=== PATIENT | male | born 1970 | race Caucasian/White ===

== ENCOUNTER 2020-04-30 23:56 | Inpatient (IN) ==
[2020-05-01] MEDS ORDERED: Heparin - STEMI 5,000 UNITS/ML 1 ml VIAL IV ONE
[2020-05-01] MEDS ORDERED: nitroGLYCERIN DRIP 25,000 MCG/250 ML BTL ONE ×2 (00:09→00:27)
[2020-05-01] MEDS ORDERED: NS 0.9% 1000 ml BAG 1,000 ML IV ONE (00:10)
[2020-05-01 00:14] LABS: ABS Eosinophils 0.1 10^3/ul (0-0.6); ABS Lymphocytes 3.5 10^3/ul (1.0-4.8); ABS Monocytes 1.2 10^3/ul (0-0.8); Eosinophil % 1.4 %; Hematocrit 39 % (42-52); Hemoglobin 13.8 g/dL (14.0-18.0); Lymphocyte % 42.8 %; Mean Corpuscular HGB Conc 36 g/dL (31-36); Mean Corpuscular Hemoglobin 33 pg (27-31); Mean Corpuscular Volume 94 fL (80-94); Mean Platelet Volume 6.7 fL (7.4-10.4); Nucleated Red Blood Cells % 0.3; Platelet Count 278 10^3/uL (150-450); Red Blood Count 4.17 10^6 /uL (4.18-5.48); Red Cell Distribution Width 13 % (10-15); White Blood Count 8.1 10^3/uL (3.5-10.8)
[2020-05-01] MEDS: nitroGLYCERIN DRIP 25,000 MCG in Premix IV 0 ML IV ONE ×2 (00:14→00:15)
[2020-05-01 00:26] LABS: Activated Partial Thrombo Time 25.4 seconds (26.0-38.0); INR 0.99 (0.82-1.09)
[2020-05-01] MEDS ORDERED: VERAPAMIL 2.5 MG/ML 2 ML VIAL ** 5 mg/2 ml ONE (00:26)
[2020-05-01] MEDS ORDERED: Heparin 1,000 UNIT/ML CATH LAB 1,000 10 ml (10,000 UNITS) IV ONE (00:26)
[2020-05-01] MEDS ORDERED: Heparin 2 UNITS/ML 1000 mls 3,000 ML IV ONE (00:27)
[2020-05-01] MEDS ORDERED: Lidocaine 1% VIAL 10 MG/ML VIAL ONE (00:27)
[2020-05-01 00:35] LABS: Albumin 4.3 g/dL (3.2-5.2); BUN/Creatinine Ratio 17.3 (8-20); Calcium 9.1 mg/dL (8.6-10.3); EGFR African American 85.7 (>60); EGFR Non-African American 70.9 (>60); Globulin 2.2 g/dL (2-4); Potassium 3.2 mmol/L (3.5-5.0); Total Bilirubin 0.9 mg/dL (0.2-1.0); Total Protein 6.5 g/dL (6.4-8.9)
[2020-05-01 00:38] LABS: Troponin I 0.01 ng/mL (<0.03)
[2020-05-01 00:40] LABS: CKMB ng/mL 1.9 ng/mL (0.6-6.3)
[2020-05-01] MEDS ORDERED: Iohexol 350 (CONTRAST) 200 ML MDV IV ONE ×2 (00:47→01:31)
[2020-05-01] MEDS ORDERED: Midazolam 5 mg/5 ml VIAL 1 mg/ml 5 ml VIAL (5 mg) ONE (00:48)
[2020-05-01] MEDS ORDERED: Bivalirudin(*) 250 MG VIAL ONE (01:20)
[2020-05-01] MEDS ORDERED: fentaNYL 100 mcg/2 ml 50 MCG/ML VIAL ONE (01:57)
[2020-05-01] MEDS ORDERED: NS 0.9% 1000 ml BAG 800 ML IV ONE (02:15)
[2020-05-01 03:46] LABS: Creatine Kinase 157 U/L (10-223)
[2020-05-01 03:52] LABS: CKMB ng/mL 3.8 ng/mL (0.6-6.3); Troponin I 0.37 ng/mL (<0.03)
[2020-05-01 08:45] LABS: ABS Lymphocytes 1.3 10^3/ul (1.0-4.8); Eosinophil % 0.4 %; Hematocrit 39 % (42-52); Hemoglobin 13.8 g/dL (14.0-18.0); Lymphocyte % 12.9 %; Mean Corpuscular HGB Conc 36 g/dL (31-36); Mean Corpuscular Hemoglobin 34 pg (27-31); Mean Corpuscular Volume 94 fL (80-94); Mean Platelet Volume 6.9 fL (7.4-10.4); Platelet Count 223 10^3/uL (150-450); Red Blood Count 4.13 10^6 /uL (4.18-5.48); Red Cell Distribution Width 12 % (10-15); White Blood Count 9.9 10^3/uL (3.5-10.8)
[2020-05-01 08:52] LABS: Creatine Kinase 220 U/L (10-223)
[2020-05-01 08:58] LABS: CKMB ng/mL 12.8 ng/mL (0.6-6.3)
[2020-05-01 09:04] LABS: Troponin I 1.48 ng/mL (<0.03)
[2020-05-01 09:36] LABS: Albumin 4.3 g/dL (3.2-5.2); BUN/Creatinine Ratio 16.3 (8-20); EGFR African American 113.9 (>60); EGFR Non-African American 94.1 (>60); Globulin 2.2 g/dL (2-4); Potassium 3.8 mmol/L (3.5-5.0); Total Bilirubin 1.2 mg/dL (0.2-1.0); Total Protein 6.5 g/dL (6.4-8.9)
[2020-05-01 14:51] LABS: CKMB ng/mL 28.3 ng/mL (0.6-6.3)
[2020-05-01 14:52] LABS: Troponin I 3.33 ng/mL (<0.03)
[2020-05-01 15:25] LABS: Creatine Kinase 406 U/L (10-223)
[2020-05-01 18:05] LABS: Creatine Kinase 467 U/L (10-223)
[2020-05-01 18:12] LABS: CKMB ng/mL 33.8 ng/mL (0.6-6.3)
[2020-05-01 18:14] LABS: Troponin I 4.96 ng/mL (<0.03)
[2020-05-01] MEDS ORDERED: fentaNYL 100 mcg/2 ml 50 MCG/ML VIAL IV SLOW PU PRN (18:22)
[2020-05-01] MEDS ORDERED: fentaNYL 100 mcg/2 ml 50 MCG/ML VIAL IV SLOW PU ONE (19:30)
[2020-05-02 00:08] LABS: Creatine Kinase 443 U/L (10-223)
[2020-05-02 00:12] LABS: Troponin I 5.66 ng/mL (<0.03)
[2020-05-02 00:13] LABS: CKMB ng/mL 28.1 ng/mL (0.6-6.3)
[2020-05-02 04:34] LABS: Anion Gap 8 mmol/L (2-11); BUN/Creatinine Ratio 12.2 (8-20); Blood Urea Nitrogen 12 mg/dL (6-24); CO2 Carbon Dioxide 23 mmol/L (22-32); Calcium 9.1 mg/dL (8.6-10.3); Chloride 107 mmol/L (101-111); Cholesterol 173 mg/dL; Glucose 107 mg/dL (70-100); HDL Cholesterol 37.2 mg/dL; LDL Cholesterol 103 mg/dL; Potassium 3.8 mmol/L (3.5-5.0); Sodium 138 mmol/L (135-145); Triglycerides 164 mg/dL
[2020-05-02] MEDS ORDERED: Lorazepam PYXIS KEY ONE (09:06)
[2020-05-02 09:16] LABS: Troponin I 5.72 ng/mL (<0.03)
[2020-05-03 07:17] LABS: Calcium 9.6 mg/dL (8.6-10.3); EGFR African American 102.8 (>60); EGFR Non-African American 84.9 (>60)
[2020-05-03 07:25] LABS: Troponin I 2.91 ng/mL (<0.03)
[2020-05-03 11:05] VITALS: BP 117/69
== END 2020-05-03 11:00 | disposition home or self-care (01) | DRG 174 ==
LOC: ED 23:56 → CHICATH 05-01 00:54 → ICU 05-01 00:55 → MEDTELE 05-02 11:32
PROVIDERS: ADMIT Internal Medicine Cardiovascular Disease; ATTEND Internal Medicine Cardiovascular Disease